=== PATIENT | female | born 1965 ===

== ENCOUNTER 2020-11-15 07:59 | Inpatient (IN) ==
--- NOTE | 2020-10-11 11:26 | PAT Medication Instructions ---
Medication Instructions Date of Service October 11, 2020 Home Medications atorvastatin 20 mg tablet 20 mg PO QAM cholecalciferol (vitamin D3) 50 mcg (2,000 unit) tablet (Vitamin D3) 50 mcg PO QAM duloxetine 30 mg capsule,delayed release 30 mg PO QAM hydrocortisone 10 mg tablet 10 mg PO UD levothyroxine 88 mcg tablet 88 mcg PO QAM lisinopril 20 mg-hydrochlorothiazide 25 mg tablet 1 tab PO QAM DO NOT take the morning of surgery cholecalciferol (vitamin D3) 50 mcg (2,000 unit) tablet (Vitamin D3) 50 mcg PO QAM lisinopril 20 mg-hydrochlorothiazide 25 mg tablet 1 tab PO QAM Take morning of surgery With a small sip of water, OTHERWISE NOTHING TO EAT OR DRINK AFTER MIDNIGHT: atorvastatin 20 mg tablet 20 mg PO QAM duloxetine 30 mg capsule,delayed release 30 mg PO QAM levothyroxine 88 mcg tablet 88 mcg PO QAM Take evening before surgery hydrocortisone 10 mg tablet 10 mg PO UD Other Notes If you have any questions please call us at [phone] or [phone] or [phone] or [phone]
--- NOTE | 2020-10-11 11:29 | Anesthesiology Consultation ---
Date of Service October 11, 2020 Assessment & Plan (1) Encounter for pre-operative examination: - COVID screening: Per assessment on 10/11: Travel screen negative, no known COVID-19 positive contacts or current COVID-19 related symptoms. Patient vaccinated. Surgeon arranging preop COVID testing. Awaiting results. - Ict Managers needed: Patient declined brim stitcher at PAT visit. Able to answer questions in Nepali appropriately with aid of friend present for some clarification. Patient requesting bottom turning lathe tender for DOS. OR made aware. Chart Review Chart Review: Acceptable Risk for Surgery and Patient seen in Pre Admission Testing Teaching & Discussion Pre-Anesthesia Teaching/Discussion Notes: Instructed NPO after midnight before surgery,except medications with 15 cc of water. Medication instructions provided according to the [facility] guidelines. History Surgery Operation Date: 10/25/20 09:45 Proposed Procedures p L4-S1 Decompression and Fusion Spinal Cord Monitoring - Antelmo Mcdermott, Height/Weight Height: 5 ft 4 in Weight: 65.3 kg Allergies Allergy/AdvReac Type Severity Reaction Status Date / Time acetaminophen [From Percocet] AdvReac Mild Nausea Verified 10/11/20 11:56 oxycodone [From Percocet] AdvReac Mild Nausea Verified 10/11/20 11:56 pollen extracts AdvReac Mild Cough Unverified 10/11/20 11:56 Kiasxld-Lzj-Jau Reductase AdvReac Unknown Elevated Unverified 10/11/20 11:16 Inhibitor LFTs (per [facility] records) Medications Home Medications Medication Instructions Recorded Confirmed Last Taken atorvastatin 20 mg tablet 20 mg PO QAM 10/11/20 10/11/20 Unknown cholecalciferol (vitamin D3) 50 50 mcg PO QAM 10/11/20 10/11/20 Unknown mcg (2,000 unit) tablet (Vitamin D3) duloxetine 30 mg capsule,delayed 30 mg PO QAM 10/11/20 10/11/20 Unknown release hydrocortisone 10 mg tablet 10 mg PO UD 10/11/20 10/11/20 Unknown levothyroxine 88 mcg tablet 88 mcg PO QAM 10/11/20 10/11/20 Unknown lisinopril 20 1 tab PO QAM 10/11/20 10/11/20 Unknown mg-hydrochlorothiazide 25 mg tablet Past Medical History Medical History Adrenal cortex insufficiency Follows with endocrine (Dr. Lopez/[place]), pt taking hydrocortisone 30mg HS Degenerative disc disease History of migraine HTN (hypertension) Hyperlipidemia Papillary thyroid carcinoma s/p surgery/radiation Peripheral neuropathy Reason for duloxetine per pt Postoperative hypothyroidism Renal cyst "simple" Restless leg syndrome Exercise / Class Metabolic Activity III < 4 Walking/Shop/Light housework (one FS (no CP, occasional SOB)) Past Family History Family History Other No family history of adverse response to anesthesia Past Surgical History Surgical History H/O total thyroidectomy History of colonoscopy History of hysterectomy Partial History of surgical procedure on eye proper using laser Right eye (r/t bleed) History of tooth extraction Past Anesthesia History No Hx of Anesthesia Complications and No Family Hx of Anesthesia Complications History of PONV No Hx of PONV Review of Systems Patient denies chest pain, shortness of breath, dyspnea on exertion, fever, chills, cough, wheezing, palpitations. Physical Exam Vital Signs VITALS BP 100/65 P 76 TEMP WNL SP02 97%RA RESP 20 PHYSICAL Full cervical extension range of motion. Full TMJ range of motion. TMD 3 finger breaths Mallampati Score 2 Dentition: intact Lungs: clear throughout to auscultation Cardiac: regular rate and rhythm, no murmurs noted Spine: normal Carotid arteries: negative bruit Extremities: no edema Lab Results Anesthesia Preop Results Results Anesthesia Widget: WBC 6.86 K/uL (4.8-10.8) 10/11/20 Hgb 14.1 g/dL (12.0-16.0) 10/11/20 Hct 42.2 % (37-47) 10/11/20 Plt 311 K/uL (130-400) 10/11/20 Na 138 mmol/L (136-145) 10/11/20 K 3.6 mmol/L (3.5-5.1) 10/11/20 Cl 104 mmol/L (98-107) 10/11/20 CO2 30 mmol/L (21-32) 10/11/20 BUN 12 mg/dl (7-18) 10/11/20 Creat 0.76 mg/dl (0.6-1.2) 10/11/20 Glucose Level 101 mg/dl (70-99) H 10/11/20 PT 10.0 Seconds (9.0-12.0) 10/11/20 PTT 24.9 Seconds (21.0-31.0) 10/11/20 INR 1.0 (0.9-1.1) 10/11/20 Urine Color Yellow 10/11/20 Urine Appearance Clear (Clear) 10/11/20 Urine pH 7.5 (4.5-7.5) 10/11/20 Urine Specific [place] 1.014 (1.000-1.030) 10/11/20 Urine Protein Negative (Negative) 10/11/20 Urine Glucose (UA) Negative (Negative) 10/11/20 Urine Ketones Negative (Negative) 10/11/20 Urine Blood 1+ (Negative) H 10/11/20 Urine Nitrite Negative (Negative) 10/11/20 Urine Bilirubin Negative (Negative) 10/11/20 Urine Urobilinogen Negative (Negative) 10/11/20 Urine Leukocyte Esterase Negative (Negative) 10/11/20 Urine WBC (Auto) 1-5 /hpf (0-5) 10/11/20 Urine RBC (Auto) 5-10 /hpf (0-4) H 10/11/20 Urine Hyaline Casts (Auto) 1-5 /lpf (0-5) 10/11/20 Urine Epithelial Cells (Auto) 5-10 /lpf (0-5) H 10/11/20 Urine Bacteria (Auto) Negative (Negative) 10/11/20 Blood Type A Positive 10/11/20 Antibody Screen NEGATIVE 10/11/20 Testing Electrocardiogram Date: 10/11/20 NSR at 70bpm. unconfirmed report. Chest X-Ray Date: 10/11/20 Findings: + NAD
[~2020-11-15 07:59] MED LIST: ACETAMINOPHEN 500 MG TAB PO SCH; CeleBREX 200 MG CAP PO SCH; GABAPENTIN 600 MG DOSE PO SCH; LR 15ML/HR IV SCH; ceFAZolin 1000MG 1,000 MG/7.5 ML SYR IV SCH
[2020-11-15] MEDS ORDERED: fentaNYL citrate 100 MCG/2 ML VIAL ONE (08:00)
[2020-11-15] MEDS ORDERED: MIDAZOLAM HCL 1 MG/ML 2ML VIAL ONE (08:00)
[2020-11-15] MEDS ORDERED: HYDROmorphone INJ 2 MG/ML SYR/VIAL ONE (08:12)
--- NOTE | 2020-11-15 08:31 | History & Physical Bridge Note ---
Date of Service November 15, 2020 History & Physical Bridge Note I have examined the patient, reviewed the History & Physical and in the interval since the performance of the History & Physical I have noted the following changes of clinical significance: no changes noted
--- NOTE | 2020-11-15 08:32 | History & Physical Report ---
Date of Service November 15, 2020 Assessment & Plan (1) Neurogenic claudication due to lumbar spinal stenosis: Plan: L4-S1 decompression fusion History of Present Illness Chief Complaint: Back and leg pain Primary Care Provider: Jemima Sepulveda MD This is a 55-year-old female who presents with chronic persistent back and leg pain after failing course of nonoperative care is here for surgical invention. Allergies Allergy/AdvReac Type Severity Reaction Status Date / Time oxycodone [From Percocet] AdvReac Mild Nausea Verified 10/11/20 11:56 pollen extracts AdvReac Mild Cough Unverified 10/11/20 11:56 Cyatnlm-Fld-Zvo Reductase AdvReac Unknown Elevated Unverified 10/11/20 11:16 Inhibitor LFTs (per [facility] records) Home Medications Medication Instructions Recorded Confirmed Type atorvastatin 20 mg tablet 20 mg PO QAM 10/11/20 10/11/20 History cholecalciferol (vitamin D3) 50 50 mcg PO QAM 10/11/20 10/11/20 History mcg (2,000 unit) tablet (Vitamin D3) duloxetine 30 mg capsule,delayed 30 mg PO QAM 10/11/20 10/11/20 History release hydrocortisone 10 mg tablet 10 mg PO UD 10/11/20 10/11/20 History levothyroxine 88 mcg tablet 88 mcg PO QAM 10/11/20 10/11/20 History lisinopril 20 1 tab PO QAM 10/11/20 10/11/20 History mg-hydrochlorothiazide 25 mg tablet Past Med/Surg History Medical History Adrenal cortex insufficiency Follows with endocrine (Dr. Lopez/[place]), pt taking hydrocortisone 30mg HS Degenerative disc disease History of migraine HTN (hypertension) Hyperlipidemia Papillary thyroid carcinoma s/p surgery/radiation Peripheral neuropathy Reason for duloxetine per pt Postoperative hypothyroidism Renal cyst "simple" Restless leg syndrome Surgical History H/O total thyroidectomy History of colonoscopy History of hysterectomy Partial History of surgical procedure on eye proper using laser Right eye (r/t bleed) History of tooth extraction Family History Other No family history of adverse response to anesthesia Social History Smoking Status: Never smoker Second Hand Exposure: No; Hx Alcohol Use: No Preferred Language: Nut Packer Required: Yes Beliefs That Will Affect Care: None Current Living Situation: Spouse Feels Safe at Home: Yes Safety Concerns: Feels Safe At This Time Assistive Devices: Glasses Physical Exam Physical Exam: Patient is alert and oriented Heart regular in rhythm Lungs clear to auscultation
[2020-11-15] MEDS ORDERED: BUPIVACAINE 0.5 % 5 MG/1 ML MPF 30ML VIAL ONE (08:54)
[2020-11-15] MEDS ORDERED: EPINEPHrine INJ 1 MG/ML AMP ONE (08:54)
[2020-11-15] MEDS ORDERED: ATROPINE SULFATE 0.1 MG/ML 10ML SYR IV PRN (09:01)
[2020-11-15] MEDS ORDERED: HYDROmorphone INJ 1 MG/ML SYRINGE IV PRN ×2 (09:01→14:45)
[2020-11-15] MEDS ORDERED: ONDANSETRON INJ 2 MG/ML 2 ML VIAL IV PRN ×2 (09:01→14:45)
[2020-11-15] MEDS ORDERED: ePHEDrine sulfate 50 MG/ML SYR ONE (11:32)
[2020-11-15] MEDS ORDERED: ONDANSETRON INJ 2 MG/ML 2 ML VIAL ONE (11:32)
[2020-11-15] MEDS ORDERED: DEXAMETHASONE SOD INJ 4 MG/ML VIAL ONE (11:32)
[2020-11-15] MEDS ORDERED: HYDROCORTISONE SOD SUCCINATE 100 MG/2 ML VIAL ONE (11:32)
[2020-11-15] MEDS ORDERED: PROPOFOL IV EMULSION 10 MG/ML 20 ML VIAL IV ONE (11:32)
[2020-11-15] MEDS ORDERED: PHENYLEPHRINE 100MCG/ML 5ML SYR ONE (11:32)
[2020-11-15] MEDS ORDERED: GLYCOPYRROLATE 0.2 MG/ML VIAL ONE (11:32)
[2020-11-15] MEDS ORDERED: ROCURONIUM BROMIDE 10 MG/ML 5 ML VIAL IV ONE (11:32)
[2020-11-15] MEDS ORDERED: LIDOCAINE 2% 2 ML VIAL/AMP(20MG/ML) INFIL ONE (11:32)
[2020-11-15] MEDS ORDERED: LARYING-O-JET KIT (LTA) ONE (11:32)
[2020-11-15] MEDS ORDERED: NEOSTIGMINE METHYLSULFATE 1 MG/ML 10ML VIAL ONE (11:32)
[2020-11-15] MEDS ORDERED: FLOSEAL HEMOSTATIC MATRIX 10ML TOP ONE (12:42)
--- NOTE | 2020-11-15 12:46 | Operative Report ---
Post Operative Report Pre & Post Diagnosis Operation Date: 11/15/20 10:45 Pre-Op Diagnosis: Spinal Stenosis, Lumbar Region with Neurogenic Claudication Post-Op Diagnosis: Spinal Stenosis, Lumbar Region with Neurogenic Claudication I identified the patient and participated in the time-out.: Yes Procedure Operation Date: 11/15/20 10:45 Actual Procedures #1 lumbar decompression with bilateral medial facetectomies and foraminotomies L3-4, L4-5 and L5-S1. #2 posterior spinal fusion L4-5 L5-S1. #3 placed posterior instrumentation L4-S1. #4 interbody fusion L4-5. #5 placement peek cage 12 x 22 mm at L4-L5. #6 placement locally harvested morselized autograft in the posterior gutters. #7 placement of I factor combined with Vitoss in the interbody space and posterior gutters. Surgeon Antelmo Mcdermott DO Vice President Global Digital Marketing Sanchez Sigala Estimated Blood Loss 150 Findings Consistent with Post-Op Diagnosis Specimens None Indications This is a 50 Female presents with above-mentioned diagnosis after failing since course of nonoperative care is here for the above-mentioned procedure. Description of Procedure Patient was met with identified informed consent obtained. Patient was then taken to the operative suite underwent a patient placed in a prone position adjustable top Rosas frame. All bony prominences well-padded eyes inspected to ensure no external pressure placed upon the. This point the lumbar spine was prepped and draped in a sterile fashion. Sharp dissection with the assistance of Bovie cautery performed down to and exposing the lamina and transverse processes of L4-5 and the sacral ala bilaterally. Then proceeded to perform a complete laminectomy of L4 partial laminectomy L5 partial laminectomy of L3 and performed bilateral medial facetectomies and foraminotomies. Pedicle screws then placed in L4 and S1 levels bilaterally with assistance of fluoroscopy and the proper sized rob placed. Bilateral transforaminal portion left complete discectomy of L4-5 was performed endplates curetted to subcortical bleeding bone and a 12 x 22 mm peek cage filled with I factor tapped in position. The rods were then locked in final position bilaterally. The transverse processes of L4- L5 and sacral ala burred to subcortical bleeding bone. I factor combined with the toss and locally harvested morselized autograft was placed in the posterior gutters. 15 round GABRIELLE drain inserted. Incision was then closed with 1 Vicryl the fascia 2-0 Vicryl subcutaneously and 4 Monocryl for final skin closure. Steri-Strip sterile dressings placed. Patient will continue PACU stable condition. Please note spinal cord monitoring visualized at the procedure no changes noted. Lastly Sanchez Sigala was present at the entire surgeon while the patient positioning complex portions of the surgery and final skin closure. I attest to the content of the Intraoperative Record and any orders documented therein. Any exceptions are noted below.
--- NOTE | 2020-11-15 13:12 | Fluoroscopy Report ---
FL lumbar spine 2-3V CLINICAL HISTORY: L4-S1 COMPARISON STUDY: None. FLUOROSCOPY TIME: 28 seconds. FLUOROSCOPIC IMAGES: 2 FINDINGS: Note is made of L4-L5 discectomy with interbody spacer placement. Posterior decompression i s noted. There are bilateral pedicle screws at the L4 and S1 levels with interconnecting rods. IMPRESSION: Fluoroscopy provided during L4-L5 discectomy and L4-S1 posterior decompression and bilat eral pedicle screw fusion. ACT 112: Negative or not required by law. Electronically signed by: Shravan Em M.D. 11/15/2020 1:10 PM
--- NOTE | 2020-11-15 14:02 | Anesthesiology Progress Note ---
Date of Service November 15, 2020 Anesthesia Post Procedure Vital Signs Vital Signs: Temp Pulse Pulse Resp BP BP Pulse Ox 11/15/20 14:00 36.7 C 91 H 12 116/66 96 11/15/20 13:45 85 12 119/70 96 11/15/20 13:35 75 12 111/70 97 11/15/20 13:25 68 12 116/65 95 11/15/20 13:15 36.5 C 96 H 16 155/87 H 97 11/15/20 09:10 36.6 C 77 18 139/79 98 Transfer of Care Handoff Completed per policy Notes Mental Status: alert / awake / arousable Patient Amnestic to Procedure: Yes Nausea / Vomiting: adequately controlled Pain: adequately controlled Airway Patency, RR, SpO2: stable & adequate BP & HR: stable & adequate Hydration State: stable & adequate Anesthetic Complications: no major complications apparent
[2020-11-15] MEDS ORDERED: DO NOT ADMINISTER FLU VACCINE PRN (14:45)
[2020-11-15] MEDS ORDERED: METOCLOPRAMIDE HCL INJ 5 MG/ML 2 ML VIAL IV PRN (14:45)
[2020-11-15] MEDS ORDERED: HYDROCODONE/ACETAMINOPHEN 7.5/325MG TAB PO PRN (14:45)
[2020-11-15] MEDS ORDERED: LORazepam 0.5 MG TAB PO PRN (14:45)
[2020-11-15] MEDS ORDERED: HYDROmorphone INJ 0.5 MG/0.5 ML SYR IV PRN (14:45)
[2020-11-15] MEDS ORDERED: ACETAMINOPHEN 500 MG TAB PO PRN (14:45)
[2020-11-15] MEDS ORDERED: DO NOT ADMINISTER PNEUMOCOCCAL VACCINE PRN (14:45)
[2020-11-15] MEDS ORDERED: SOD PHOSPHATE/SOD BIPHOSPHATE ENEMA 132 ML BTL PR PRN (14:45)
[2020-11-15] MEDS ORDERED: diphenhydrAMINE Capsule 25 MG CAP PO PRN (14:45)
[2020-11-15] MEDS ORDERED: traMADol HCL 50 MG TABLET PO PRN (14:45)
[2020-11-15] MEDS ORDERED: LORazepam 0.5 MG/1 ML VIAL IV PRN (14:45)
[2020-11-15] MEDS ORDERED: MAGNESIUM HYDROXIDE SUSP 30 ML UDC PO PRN (14:45)
[2020-11-15] MEDS ORDERED: HYDROCORTISONE 10 MG TAB PO SCH (14:45)
[2020-11-15] MEDS ORDERED: bisacodyL 10 MG SUPP PR PRN (14:45)
[2020-11-15] MEDS ORDERED: FAMOTIDINE 20 MG TAB PO PRN (14:45)
[2020-11-15] MEDS ORDERED: ONDANSETRON 4 MG OD TAB PO PRN (14:45)
[2020-11-15] MEDS ORDERED: ACETAMINOPHEN 1,000 MG/100 ML VIAL IV PRN (14:45)
[2020-11-15] MEDS ORDERED: NALOXONE HCL 0.4 MG/1 ML VIAL/CARP IV PRN (14:45)
[2020-11-15] MEDS ORDERED: hydrOXYzine HCl 25 MG TAB PO PRN (14:45)
[2020-11-15] MEDS ORDERED: PROMETHAZINE HCL 12.5 MG in SODIUM CHLORIDE 0.9% 50 ML IV PRN (14:45)
[2020-11-15] MEDS ORDERED: ALUMINUM/MAGNESIUM SUSP 30 ML UDC PO PRN (14:45)
--- NOTE | 2020-11-15 15:24 | Hospitalist Consultation ---
Date of Consultation November 15, 2020 Assessment & Plan (1) Neurogenic claudication due to lumbar spinal stenosis: Post-op Day #0 - Lumbar decompression and fusion - Pain control, ambulation and DVT prophylaxis per primary service (2) Postoperative hypothyroidism: - Continue outpatient levothyroxine (3) Peripheral neuropathy: - Continue duloxetine (4) Hyperlipidemia: - Continue atorvastatin (5) HTN (hypertension): BP currently borderline at 96/63 - likely due to anesthesia and pain meds. Will monitor and resume BP meds tomorrow with HOLDs (6) Adrenal cortex insufficiency: Reviewed endocrinology note from October - pt taking hydrocortisone 20 mg in AM and 10 mg in PM. Will continue Pt seen and reviewed with collaborating physician, Dr. Carl. Plan of care discussed and as outlined above. Vicki Dorsey PA-C Supervising Physician Co-Signing Physician Notes Patient seen and examined by me, care coordinated with Jonna Dorsey PA-C, please refer to note above for further detail. Pt is a 55 y/o female w/ hx of papillary thyroid carcinoma, adrenal cortex insufficiency, HTN, migraine, hyperlipidemia, and peripheral neuropathy who underwent lumbar decompression and fusion today by Dr. Mcdermott. Currently, pt is seen lying in bed, in NAD, she is awake but somewhat drowsy from anesthesia but able to answer questions appropriately. She denies chest pain, shortness of breath, N/V, MCKINNEY or dizziness. She is having some lower back pain but denies need for pain medications at present. Denies numbness in bilateral feet. Lungs are clear to auscultation w/o any wheezing, rhonchi, crackles. Heart sounds regular. Abdomen is soft, nontender nondistended. She is able to move lower extremities. No sensory loss. Skin is warm and dry well-perfused. Speech is fluent, no facial asymmetry. Continue to closely monitor hemodynamic status, blood pressure little bit on the lower side, will hold diuretics, reassess daily. Naye Carl MD History of Present Illness Reason for Consultation: Post-Op Med Management Requesting Physician: Dr. Mcdermott Attending Physician: Antelmo Mcdermott DO History of Present Illness This is a 55 y/o female with a PMH papillary thyroid carcinoma, adrenal cortex insufficiency, HTN, migraine, hyperlipidemia, and peripheral neuropathy who underwent lumbar decompression and fusion today by Dr. Mcdermott. Currently, pt is seen lying in bed, still somewhat drowsy from anesthesia but able to answer questions appropriately. She denies chest pain, shortness of breath, N/V, MCKINNEY or dizziness. She is having some lower back pain but denies need for pain medications at present. Denies numbness in bilateral feet. Endocrinology records reviewed - at last visit 11/04, pt was taking hydrocortisone 20 mg in AM, 10 mg in PM. Allergies Allergy/AdvReac Type Severity Reaction Status Date / Time oxycodone [From Percocet] AdvReac Mild Nausea Verified 11/15/20 09:06 pollen extracts AdvReac Mild Cough Unverified 11/15/20 09:06 Vhgylrz-Xmj-Fym Reductase AdvReac Unknown Elevated Unverified 11/15/20 09:06 Inhibitor LFTs (per [facility] records) Home Medications Medication Instructions Recorded Confirmed Type atorvastatin 20 mg tablet 20 mg PO QAM 10/11/20 11/15/20 History cholecalciferol (vitamin D3) 50 50 mcg PO QAM 10/11/20 11/15/20 History mcg (2,000 unit) tablet (Vitamin D3) duloxetine 30 mg capsule,delayed 30 mg PO QAM 10/11/20 11/15/20 History release hydrocortisone 10 mg tablet 10 mg PO UD 10/11/20 11/15/20 History levothyroxine 88 mcg tablet 88 mcg PO QAM 10/11/20 11/15/20 History lisinopril 20 1 tab PO DAILY 11/15/20 11/15/20 History mg-hydrochlorothiazide 12.5 mg tablet Patient History Medical History (Updated 11/15/20 @ 15:44 by Nasra Dorsey PA-C) Adrenal cortex insufficiency Follows with endocrine (Dr. Lopez/[place]), pt taking hydrocortisone 20 mg in AM, 10 mg in PM Degenerative disc disease History of migraine HTN (hypertension) Hyperlipidemia Papillary thyroid carcinoma s/p surgery/radiation Peripheral neuropathy Reason for duloxetine per pt Postoperative hypothyroidism Renal cyst "simple" Restless leg syndrome Surgical History (Updated 11/15/20 @ 15:36 by Nasra Dorsey PA-C) H/O total thyroidectomy left total thyroidectomy in May 2016, right total thyroidectomy in June 2016 History of colonoscopy History of hysterectomy Partial History of surgical procedure on eye proper using laser Right eye (r/t bleed) History of tooth extraction Family History (Updated 11/15/20 @ 15:37 by Nasra Dorsey PA-C) Grandmother (Maternal) Ovarian cancer Other No family history of adverse response to anesthesia Social History Smoking Status: Never smoker Second Hand Exposure: No; Hx Alcohol Use: No Preferred Language: Malay Communication Tools: Language Line Oven Heater Oven Heater Required: Yes Beliefs That Will Affect Care: None Current Living Situation: Spouse Feels Safe at Home: Yes Safety Concerns: Feels Safe At This Time Assistive Devices: Glasses and Walker Review of Systems Review of Systems: All systems reviewed & are unremarkable except as noted in HPI & below Constitutional: no fever and no fatigue Ear, Nose, Mouth, Throat: no sore throat Respiratory: no cough and no dyspnea Cardiovascular: no chest pain and no lightheadedness Gastrointestinal: no nausea and no vomiting Musculoskeletal: + back pain Neurologic: no numbness, no dizziness and no headache(s) Physical Exam Constitutional: WD/WN, vitals as above no acute distress Eyes: + anicteric sclerae Neck: trachea midline Respiratory: no respiratory distress and no labored breathing Auscultation: lungs clear to auscultation bilaterally; no rales, no rhonchi and no wheezes Cardiovascular: Rate/Rhythm: regular rate and regular rhythm Heart Sounds: no gallop, no murmur and no cardiac rub Gastrointestinal (Abdomen): Inspection/Auscultation: normal bowel sounds; abdomen not distended Percussion/Palpation: abdomen soft; abdomen nontender Skin: normal turgor; no jaundice Neurologic: moves all extremities Speech / Cognition: normal speech Psychiatric: A+Ox3, euthymic affect Results & Data Results & Data ([facility]) Vital Signs (Past 12 Hours) Vital Signs Temp Pulse Pulse Resp BP BP Pulse Ox 11/15/20 14:55 36.6 C 84 16 113/70 98 11/15/20 14:20 36.8 C 96 H 18 118/71 98 11/15/20 14:10 88 12 116/63 95 11/15/20 14:00 36.7 C 91 H 12 116/66 96 11/15/20 13:45 85 12 119/70 96 11/15/20 13:35 75 12 111/70 97 11/15/20 13:25 68 12 116/65 95 11/15/20 13:15 36.5 C 96 H 16 155/87 H 97 11/15/20 09:10 36.6 C 77 18 139/79 98 Laboratory Results Laboratory Results - last 24 hr 11/15/20 11/15/20 11/15/20 08:10 08:10 08:16 COVID-19 Eval Order Covid19 [facility] SARS-CoV-2, RNA, NAAT NEGATIVE Blood Type A Positive Antibody Screen NEGATIVE Crossmatch See Detail Medications Administered Acetaminophen (Acetaminophen 500 Mg Tab) 1,000 mg PO PREOP ALMA Stop: 11/15/20 18:00 Last Admin: 11/15/20 09:04 Dose: 1,000 mg Documented by: [id number] Celecoxib (Celebrex 200 Mg Cap) 200 mg PO PREOP ALMA Stop: 11/15/20 18:00 Last Admin: 11/15/20 09:04 Dose: 200 mg Documented by: [id number] Gabapentin (Gabapentin 600 Mg Dose) 600 mg PO PREOP ALMA Stop: 11/15/20 18:00 Last Admin: 11/15/20 09:04 Dose: 600 mg Documented by: [id number] Lactated Ringer's (Lr) 1,000 mls @ 15 mls/hr IV .Q24H ALMA Stop: 11/16/20 05:59 Last Infusion: 11/15/20 10:45 Dose: 0 mls/hr Documented by: [id number] Admin: 11/15/20 09:04 Dose: 15 mls/hr Documented by: [id number] Cefazolin Sodium (Ancef 1000mg) 1,000 mg in 7.5 mls @ 2.5 mls/min IV PREOP ALMA; Protocol Stop: 11/15/20 18:00 Last Admin: 11/15/20 10:45 Dose: 2.5 mls/min Documented by: [id number] Discontinued Medications Bupivacaine HCl (Bupivacaine 0.5 % 5 Mg/1 Ml Mpf 30ml Vial) Confirm Administered Dose 30 ml .ROUTE .STK-MED ONE Stop: 11/15/20 08:55 Last Admin: 11/15/20 11:49 Dose: 30 ml Documented by: [id number] Cefazolin Sodium (Cefazolin 250 Mg/Ml 1 Gm Vial) Confirm Administered Dose 1,000 mg .ROUTE .STK-MED ONE Stop: 11/15/20 08:55 Last Admin: 11/15/20 11:49 Dose: 1,000 mg Documented by: [id number] Epinephrine HCl (Epinephrine Inj 1 Mg/Ml Amp) Confirm Administered Dose 1 mg .ROUTE .STK-MED ONE Stop: 11/15/20 08:55 Last Admin: 11/15/20 11:48 Dose: 0.15 mg Documented by: [id number] Miscellaneous ( Floseal Hemostatic Matrix 10ml) 20 ml TOP ONCE ONE Stop: 11/15/20 12:43 Last Admin: 11/15/20 12:42 Dose: 15 ml Documented by: [id number]
[2020-11-15] MEDS: LACTATED RINGER'S 1,000 ML IV SCH ×2 (16:22→23:31)
[2020-11-15] MEDS: KETOROLAC TROMETHAMINE 15 MG/ML VIAL IV SCH ×2 (17:20→21:31)
[2020-11-15] MEDS: HYDROCORTISONE 10 MG TAB PO SCH (18:44)
[2020-11-15] MEDS: ceFAZolin 1000MG 1,000 MG/7.5 ML SYR IV SCH (20:21)
[2020-11-15] MEDS: DOCUSATE SODIUM/SENNA 50/8.6MG TAB PO SCH (20:22)
[2020-11-16] MEDS: KETOROLAC TROMETHAMINE 15 MG/ML VIAL IV SCH ×2 (04:39→09:55)
[2020-11-16] MEDS: ceFAZolin 1000MG 1,000 MG/7.5 ML SYR IV SCH (04:39)
[2020-11-16] MEDS: LEVOTHYROXINE SODIUM 88 MCG TABLET PO SCH (05:33)
[2020-11-16] MEDS: POLYETHYLENE (MIRALAX) 17 GM PACK PO SCH ×4 (05:34→23:21)
[2020-11-16 07:09] LABS: Basophils # (auto) 0.01 K/uL (0-0.2); Basophils % (auto) 0.1 %; Hematocrit (blood only) 33.9 % (37-47); Hemoglobin 11.1 g/dL (12.0-16.0); Immature Granulocytes # (auto) 0.03 K/uL (0.00-0.02); Immature Granulocytes % (auto) 0.3 %; Lymphocytes # (auto) 0.67 K/uL (1.2-3.4); Lymphocytes % (auto) 5.9 %; Mean Corpuscular Hemoglobin 31.5 pg (25-34); Mean Corpuscular Hgb Conc 32.7 g/dL (32-36); Mean Corpuscular Volume 96.3 fL (80-100); Monocytes # (auto) 0.62 K/uL (0.11-0.59); Monocytes % (auto) 5.4 %; Neutrophils # (auto) 10.07 K/uL (1.4-6.5); Neutrophils % (auto) 88.3 %; Platelet Count 260 K/uL (130-400); RDW Coefficient of Variation 12.8 % (11.5-14.5); RDW Standard Deviation 45.3 fL (36.4-46.3); Red Blood Count 3.52 M/uL (4.2-5.4)
[2020-11-16 07:25] LABS: BUN Creatinine Ratio 29.6 (10-20); Calcium 8.7 mg/dl (8.5-10.1); Creatinine Clr Calc Pharmacy 75.2 ml/min; Est GFR (African American) 107.5 ml/min; Est GFR (Non-African American) 92.7 ml/min; Potassium 4.5 mmol/L (3.5-5.1)
--- NOTE | 2020-11-16 07:36 | Orthopedic Progress Note ---
Date of Service November 16, 2020 Assessment & Plan (1) Neurogenic claudication due to lumbar spinal stenosis: Plan: Patient is doing well postop day #1. We will continue with GI DVT prophylaxis and pain control measures. She will be mobilized today with physical therapy and Occupational Therapy. She does realize she is asked for pain medication if she is uncomfortable. She is likely be discharged in the next day or 2 depending on her progress. Admission and Anticipated Discharge Date Admission Date: November 15, 2020 Subjective Patient seen bedside in room 307. She does not complain of any discomfort at this point. She denies any nausea. She is not having any leg pain. She denies any other numbness, tingling, or paresthesias. Physical Exam Physical Exam: On exam she is alert and oriented. She is able answer questions appropriately her abdomen soft and nontender. Her calves are supple nontender. Her strength and sensation are both intact. Her dressing is clean dry and intact her GABRIELLE drain is holding suction is placed out 35 cc on the last shift and 25 on the previous Results & Data ([facility]) Vital Signs (Past 12 Hours) Vital Signs Temp Pulse Resp BP Pulse Ox 11/16/20 07:23 36.8 C 62 16 109/66 98 11/16/20 03:30 36.7 C 58 L 16 109/64 99 11/15/20 23:07 36.6 C 82 14 92/53 L 98
--- NOTE | 2020-11-16 08:01 | Hospitalist Progress Note ---
Date of Service November 16, 2020 Assessment & Plan (1) Neurogenic claudication due to lumbar spinal stenosis: Plan: Post-op Day #1 - Lumbar decompression and fusion - Pain control, ambulation and DVT prophylaxis per primary (ortho) service Acute blood loss anemia, post-operative and dilutional - pre-op Hgb 14.1, current 11.1 - Expected, patient asymptomatic, no need for blood transfusion - cont to monitor H&H (2) Postoperative hypothyroidism: Plan: - Continue outpatient levothyroxine (3) Peripheral neuropathy: Plan: - Continue duloxetine (4) Hyperlipidemia: Plan: - Continue atorvastatin (5) HTN (hypertension): Plan: BP after surgery 96/63 - likely due to anesthesia and pain meds. Hold BP meds for now, reassess daily Current BP 109/66 cont. to monitor (6) Adrenal cortex insufficiency: Plan: Reviewed endocrinology note from October - pt taking hydrocortisone 20 mg in AM and 10 mg in PM. Will continue Admission and Anticipated Discharge Date Admission Date: November 15, 2020 Subjective Patient seen in follow-up of lumbar spinal surgery Currently laying in bed, in no acute distress She is awake alert oriented answering questions appropriately says she was ambulating a little bit around her bed Eating without difficulty, still has Cline catheter, no bowel movement Back pain controlled, no numbness tingling down the legs Review of Systems Review of Systems: All systems reviewed & are unremarkable except as noted in Subjective Physical Exam Physical Exam: Constitutional: WD/WN, in no acute distress HEENT: NC/AT, EOMI, PERRL Respiratory: no respiratory distress and no labored breathing Auscultation: lungs clear to auscultation bilaterally; no rales, no rhonchi and no wheezes Cardiovascular: Rate/Rhythm: regular rate and regular rhythm Heart Sounds: no gallop, no murmur Gastrointestinal (Abdomen): Inspection/Auscultation: normal bowel sounds; abdomen not distended Percussion/Palpation: abdomen soft; abdomen nontender Skin: normal turgor; no jaundice Neurologic: moves all extremities Speech / Cognition: normal speech Psychiatric: A+Ox3, euthymic affect Results & Data Results & Data ([facility]) Vital Signs (Past 12 Hours) Vital Signs Temp Pulse Resp BP Pulse Ox 11/16/20 07:23 36.8 C 62 16 109/66 98 09/04/21 03:30 36.7 C 58 L 16 109/64 99 11/15/20 23:07 36.6 C 82 14 92/53 L 98 Laboratory Results 11/16/20 11/16/20 11/15/20 Range/Units 06:33 06:33 08:16 WBC 11.40 H (4.8-10.8) K/uL RBC 3.52 L (4.2-5.4) M/uL Hgb 11.1 L (12.0-16.0) g/dL Hct 33.9 L (37-47) % MCV 96.3 (80-100) fL MCH 31.5 (25-34) pg MCHC 32.7 (32-36) g/dL RDW Std Deviation 45.3 (36.4-46.3) fL RDW Coeff of Crystal 12.8 (11.5-14.5) % Plt Count 260 (130-400) K/uL MPV 10.0 (7.4-10.4) fL Immature Gran % (Auto) 0.3 % Neut % (Auto) 88.3 % Lymph % (Auto) 5.9 % Maverick % (Auto) 5.4 % Eos % (Auto) 0.0 % Baso % (Auto) 0.1 % Neut # (Auto) 10.07 H (1.4-6.5) K/uL Lymph # (Auto) 0.67 L (1.2-3.4) K/uL Maverick # (Auto) 0.62 H (0.11-0.59) K/uL Eos # (Auto) 0.00 (0-0.5) K/uL Baso # (Auto) 0.01 (0-0.2) K/uL Immature Gran # (Auto) 0.03 H (0.00-0.02) K/uL Sodium 141 (136-145) mmol/L Potassium 4.5 (3.5-5.1) mmol/L Chloride 108 H (98-107) mmol/L Carbon Dioxide 30 (21-32) mmol/L Anion Gap 3.0 (3-11) BUN 21 H (7-18) mg/dl Creatinine 0.73 (0.6-1.2) mg/dl Est Cr Clr Drug Dosing 75.2 ml/min Est GFR ( Amer) 107.5 ml/min Est GFR (Non-Af Amer) 92.7 ml/min BUN/Creatinine Ratio 29.6 H (10-20) Glucose 106 H (70-99) mg/dl Calcium 8.7 (8.5-10.1) mg/dl COVID-19 Eval Order SARS-CoV-2, RNA, NAAT (NEGATIVE) Blood Type A Positive Antibody Screen NEGATIVE Crossmatch See Detail 11/15/20 11/15/20 Range/Units 08:10 08:10 WBC (4.8-10.8) K/uL RBC (4.2-5.4) M/uL Hgb (12.0-16.0) g/dL Hct (37-47) % MCV (80-100) fL MCH (25-34) pg MCHC (32-36) g/dL RDW Std Deviation (36.4-46.3) fL RDW Coeff of Crystal (11.5-14.5) % Plt Count (130-400) K/uL MPV (7.4-10.4) fL Immature Gran % (Auto) % Neut % (Auto) % Lymph % (Auto) % Maverick % (Auto) % Eos % (Auto) % Baso % (Auto) % Neut # (Auto) (1.4-6.5) K/uL Lymph # (Auto) (1.2-3.4) K/uL Maverick # (Auto) (0.11-0.59) K/uL Eos # (Auto) (0-0.5) K/uL Baso # (Auto) (0-0.2) K/uL Immature Gran # (Auto) (0.00-0.02) K/uL Sodium (136-145) mmol/L Potassium (3.5-5.1) mmol/L Chloride (98-107) mmol/L Carbon Dioxide (21-32) mmol/L Anion Gap (3-11) BUN (7-18) mg/dl Creatinine (0.6-1.2) mg/dl Est Cr Clr Drug Dosing ml/min Est GFR ( Amer) ml/min Est GFR (Non-Af Amer) ml/min BUN/Creatinine Ratio (10-20) Glucose (70-99) mg/dl Calcium (8.5-10.1) mg/dl COVID-19 Eval Order Covid19 IDNow [facility] SARS-CoV-2, RNA, NAAT NEGATIVE (NEGATIVE) Blood Type Antibody Screen Crossmatch Medications Administered Current Inpatient Medications Acetaminophen (Acetaminophen 500 Mg Tab) 1,000 mg PO Q8H PRN PRN Reason: MILD Pain Scale 1,2,3 & Pre PT Stop: 12/15/20 14:44 Hydrocodone Bitart/Acetaminophen (Hydrocodone/Acetaminophen 7.5/325mg Tab) 1 - 2 tab PO Q4H PRN PRN Reason: Pain & Pre PT Stop: 11/29/20 14:44 Al Hydrox/Mg Hydrox/Simethicone (Aluminum/Magnesium Susp 30 Ml Udc) 30 ml PO Q6H PRN PRN Reason: Dyspepsia Stop: 12/15/20 14:44 Atorvastatin Calcium (Atorvastatin 20 Mg Tab) 20 mg PO QAM [facility] Stop: 12/16/20 08:59 Bisacodyl (Bisacodyl 10 Mg Supp) 10 mg FL DAILY PRN PRN Reason: Constipation Stop: 12/15/20 14:44 Diphenhydramine HCl (Diphenhydramine Capsule 25 Mg Cap) 25 mg PO Q6H PRN PRN Reason: Allergic Rhinitis/Insomnia Stop: 12/15/20 14:44 Duloxetine HCl (Duloxetine Hcl 30 Mg Cap) 30 mg PO QAM [facility] Stop: 12/16/20 08:59 Famotidine (Famotidine 20 Mg Tab) 20 mg PO Q12H PRN PRN Reason: Dyspepsia Stop: 12/15/20 14:44 Hydrocortisone (Hydrocortisone 10 Mg Tab) 20 mg PO QAM [facility] Stop: 12/16/20 08:59 Hydrocortisone (Hydrocortisone 10 Mg Tab) 10 mg PO QDD [facility] Stop: 12/15/20 18:59 Last Admin: 11/15/20 18:44 Dose: 10 mg Documented by: Hydromorphone HCl (Hydromorphone Inj 0.5 Mg/0.5 Ml Syr) 0.5 mg IV Q3H PRN PRN Reason: MODERATE Pain (Scale 4,5,6) & Pre PT Stop: 11/29/20 14:44 Last Admin: 11/15/20 23:34 Dose: 0.5 mg Documented by: Hydromorphone HCl (Hydromorphone Inj 1 Mg/Ml Syringe) 1 mg IV Q3H PRN PRN Reason: SEVERE Pain (Scale 7,8,9,10) Stop: 11/29/20 14:44 Hydroxyzine HCl (Hydroxyzine Hcl 25 Mg Tab) 25 mg PO Q8H PRN PRN Reason: Anxiety Stop: 12/15/20 14:44 Lactated Ringer's (Lr) 1,000 mls @ 100 mls/hr IV .Q10H [facility] Stop: 12/15/20 14:44 Last Admin: 11/15/20 23:31 Dose: 100 mls/hr Documented by: Promethazine HCl 12.5 mg/ (Sodium Chloride) 50.5 mls @ 202 mls/hr IV Q6H PRN PRN Reason: Nausea &/or Vomiting Stop: 12/15/20 14:44 Acetaminophen (Ofirmev) 1,000 mg in 100 mls @ 400 mls/hr IV Q8H PRN PRN Reason: Pain Rating 1-3 & Pre PT Stop: 11/18/20 14:44 Lorazepam (Ativan) 0.5 mg in 1 mls @ 1 mls/min IV Q8H PRN PRN Reason: Sedation/Anxiety Stop: 12/15/20 14:44 Influenza Virus Vaccine Quadrival (Do Not Administer Flu Vaccine) 1 ea N/A PRN PRN PRN Reason: Notification Stop: 12/15/20 14:44 Ketorolac Tromethamine (Ketorolac Tromethamine 15 Mg/Ml Vial) 15 mg IV Q6H [facility] Stop: 11/16/20 10:01 Last Admin: 11/16/20 04:39 Dose: 15 mg Documented by: Levothyroxine Sodium (Levothyroxine Sodium 88 Mcg Tablet) 88 mcg PO DAILYBB [facility] Stop: 12/16/20 06:29 Last Admin: 11/16/20 05:33 Dose: 88 mcg Documented by: Lorazepam (Lorazepam 0.5 Mg Tab) 0.5 mg PO Q8H PRN PRN Reason: Sedation/Anxiety Stop: 12/15/20 14:44 Magnesium Hydroxide (Magnesium Hydroxide Susp 30 Ml Udc) 30 ml PO Q24H PRN PRN Reason: Constipation Stop: 12/15/20 14:44 Metoclopramide HCl (Metoclopramide Hcl Inj 5 Mg/Ml 2 Ml Vial) 10 mg IV Q6H PRN PRN Reason: Nausea &/or Vomiting Stop: 12/15/20 14:44 Naloxone HCl (Naloxone Hcl 0.4 Mg/1 Ml Vial/Carp) 0.1 mg IV Q5M PRN PRN Reason: Oversedation/Resp depression Stop: 12/15/20 14:44 Ondansetron HCl (Ondansetron Inj 2 Mg/Ml 2 Ml Vial) 4 mg IV Q6H PRN PRN Reason: Nausea &/or Vomiting Stop: 12/15/20 14:44 Ondansetron HCl (Ondansetron 4 Mg Od Tab) 4 mg PO Q6H PRN PRN Reason: Nausea Stop: 12/15/20 14:44 Pneumococcal Polyvalent Vaccine (Do Not Administer Pneumococcal Vaccine) 1 ea N/A PRN PRN PRN Reason: Notification Stop: 12/15/20 14:44 Polyethylene Glycol (Polyethylene (Miralax) 17 Gm Pack) 17 gm PO Q6 [facility] Stop: 12/16/20 05:59 Last Admin: 11/16/20 05:34 Dose: Not Given Documented by: Senna/Docusate Sodium (Docusate Sodium/Senna 50/8.6mg Tab) 2 tab PO HS [facility] Stop: 12/15/20 20:59 Last Admin: 11/15/20 20:22 Dose: 2 tab Documented by: Sodium Biphosphate/Sodium Phosphate (Sod Phosphate/Sod Biphosphate Enema 132 Ml Btl) 132 ml FL ONE PRN PRN Reason: Constipation Stop: 12/15/20 14:44 Tramadol HCl (Tramadol Hcl 50 Mg Tablet) 50 - 100 mg PO Q4H PRN PRN Reason: Moderate-Severe pain & Pre PT Stop: 12/15/20 14:44 Vitamin D (Cholecalciferol 1,000 Units 25 Mcg Tab) 2,000 units PO QAM [facility] Stop: 12/16/20 08:59
[2020-11-16] MEDS: HYDROCORTISONE 10 MG TAB PO SCH ×2 (08:09→16:59)
[2020-11-16] MEDS: CHOLECALCIFEROL 1,000 UNITS 25 MCG TAB PO SCH (08:09)
[2020-11-16] MEDS: ATORVASTATIN 20 MG TAB PO SCH (08:10)
[2020-11-16] MEDS: DULoxetine HCL 30 MG CAP PO SCH (08:10)
[2020-11-16] MEDS ORDERED: LISINOPRIL/HCTZ 20/25MG 1 TAB PO SCH (09:00)
[2020-11-16] MEDS ORDERED: lisinopril 20 MG TAB PO SCH (09:00)
[2020-11-16] MEDS: LACTATED RINGER'S 1,000 ML IV SCH ×2 (09:55→18:07)
[2020-11-16] MEDS: DOCUSATE SODIUM/SENNA 50/8.6MG TAB PO SCH (20:43)
[2020-11-17] MEDS: LACTATED RINGER'S 1,000 ML IV SCH (03:43)
[2020-11-17 05:26] LABS: Hematocrit (blood only) 32.4 % (37-47); Hemoglobin 10.5 g/dL (12.0-16.0); Mean Corpuscular Hemoglobin 31.5 pg (25-34); Mean Corpuscular Hgb Conc 32.4 g/dL (32-36); Mean Corpuscular Volume 97.3 fL (80-100); Mean Platelet Volume 10.1 fL (7.4-10.4); Platelet Count 217 K/uL (130-400); RDW Coefficient of Variation 12.9 % (11.5-14.5); RDW Standard Deviation 45.9 fL (36.4-46.3); Red Blood Count 3.33 M/uL (4.2-5.4); White Blood Count 7.72 K/uL (4.8-10.8)
[2020-11-17 05:49] LABS: BUN Creatinine Ratio 26.9 (10-20); Calcium 8.4 mg/dl (8.5-10.1); Creatinine Clr Calc Pharmacy 85.8 ml/min; Est GFR (African American) 116.4 ml/min; Est GFR (Non-African American) 100.5 ml/min; Potassium 4.3 mmol/L (3.5-5.1)
[2020-11-17] MEDS: LEVOTHYROXINE SODIUM 88 MCG TABLET PO SCH (05:57)
[2020-11-17] MEDS: POLYETHYLENE (MIRALAX) 17 GM PACK PO SCH (05:57)
--- NOTE | 2020-11-17 07:32 | Hospitalist Progress Note ---
Date of Service November 17, 2020 Assessment & Plan (1) Neurogenic claudication due to lumbar spinal stenosis: Plan: Post-op Day #2 - Lumbar decompression and fusion - Pain control, ambulation and DVT prophylaxis per primary (ortho) service Acute blood loss anemia, post-operative and dilutional - pre-op Hgb 14.1, current 10.5 (yesterday 11.1) - Expected, patient asymptomatic, no need for blood transfusion - cont to monitor H&H (2) Postoperative hypothyroidism: Plan: - Continue outpatient levothyroxine (3) Peripheral neuropathy: Plan: - Continue duloxetine (4) Hyperlipidemia: Plan: - Continue atorvastatin (5) HTN (hypertension): Plan: BP after surgery 96/63 - likely due to anesthesia and pain meds. Held BP meds while inpt. Current BP improved, may resume home BP meds on DC cont. to monitor (6) Adrenal cortex insufficiency: Plan: Reviewed endocrinology note from October - pt taking hydrocortisone 20 mg in AM and 10 mg in PM. Will continue Admission and Anticipated Discharge Date Admission Date: November 15, 2020 Subjective Patient seen in follow-up of lumbar spinal surgery Currently sitting up in bed, in no acute distress, eating breakfast She is awake alert oriented answering questions appropriately Reports no difficulty voiding, also reports having BM this morning Back pain controlled, no numbness tingling down the legs Review of Systems Review of Systems: All systems reviewed & are unremarkable except as noted in Subjective Physical Exam Physical Exam: Constitutional: WD/WN, in no acute distress HEENT: NC/AT, EOMI, PERRL Respiratory: no respiratory distress and no labored breathing Auscultation: lungs clear to auscultation bilaterally; no rales, no rhonchi and no wheezes Cardiovascular: Rate/Rhythm: regular rate and regular rhythm Heart Sounds: no gallop, no murmur Gastrointestinal (Abdomen): Inspection/Auscultation: normal bowel sounds; abdomen not distended Percussion/Palpation: abdomen soft; abdomen nontender Skin: normal turgor; no jaundice Neurologic: moves all extremities Speech / Cognition: normal speech Psychiatric: A+Ox3, euthymic affect Results & Data Results & Data ([facility]) Vital Signs (Past 12 Hours) Vital Signs Temp Pulse Resp BP Pulse Ox 11/16/20 22:33 36.7 C 74 15 128/70 96 Laboratory Results 11/17/20 11/17/20 Range/Units 04:57 04:57 WBC 7.72 (4.8-10.8) K/uL RBC 3.33 L (4.2-5.4) M/uL Hgb 10.5 L (12.0-16.0) g/dL Hct 32.4 L (37-47) % MCV 97.3 (80-100) fL MCH 31.5 (25-34) pg MCHC 32.4 (32-36) g/dL RDW Std Deviation 45.9 (36.4-46.3) fL RDW Coeff of Crystal 12.9 (11.5-14.5) % Plt Count 217 (130-400) K/uL MPV 10.1 (7.4-10.4) fL Sodium 142 (136-145) mmol/L Potassium 4.3 (3.5-5.1) mmol/L Chloride 110 H (98-107) mmol/L Carbon Dioxide 33 H (21-32) mmol/L Anion Gap -1.0 L (3-11) BUN 17 (7-18) mg/dl Creatinine 0.64 (0.6-1.2) mg/dl Est Cr Clr Drug Dosing 85.8 ml/min Est GFR ( Amer) 116.4 ml/min Est GFR (Non-Af Amer) 100.5 ml/min BUN/Creatinine Ratio 26.9 H (10-20) Glucose 93 (70-99) mg/dl Calcium 8.4 L (8.5-10.1) mg/dl Medications Administered Current Inpatient Medications Acetaminophen (Acetaminophen 500 Mg Tab) 1,000 mg PO Q8H PRN PRN Reason: MILD Pain Scale 1,2,3 & Pre PT Stop: 12/15/20 14:44 Hydrocodone Bitart/Acetaminophen (Hydrocodone/Acetaminophen 7.5/325mg Tab) 1 - 2 tab PO Q4H PRN PRN Reason: Pain & Pre PT Stop: 11/29/20 14:44 Al Hydrox/Mg Hydrox/Simethicone (Aluminum/Magnesium Susp 30 Ml Udc) 30 ml PO Q6H PRN PRN Reason: Dyspepsia Stop: 12/15/20 14:44 Atorvastatin Calcium (Atorvastatin 20 Mg Tab) 20 mg PO QAM [facility] Stop: 12/16/20 08:59 Last Admin: 11/16/20 08:10 Dose: 20 mg Documented by: Bisacodyl (Bisacodyl 10 Mg Supp) 10 mg [place] DAILY PRN PRN Reason: Constipation Stop: 12/15/20 14:44 Diphenhydramine HCl (Diphenhydramine Capsule 25 Mg Cap) 25 mg PO Q6H PRN PRN Reason: Allergic Rhinitis/Insomnia Stop: 12/15/20 14:44 Duloxetine HCl (Dul[facility]etine Hcl 30 Mg Cap) [facility] [place] Stop: 12/16/20 08:59 Last Admin: 11/16/20 08:10 Dose: 30 mg Documented by: Famotidine (Famotidine 20 Mg Tab) 20 mg PO Q12H PRN PRN Reason: Dyspepsia Stop: 12/15/20 14:44 Hydrocortisone (Hydrocortisone 10 Mg Tab) [facility] [place] Stop: 12/16/20 08:59 Last Admin: 11/16/20 08:09 Dose: 20 mg Documented by: Hydrocortisone (Hydrocortisone 10 Mg Tab) 10 mg PO QDD [facility] Stop: 12/15/20 18:59 Last Admin: 11/16/20 16:59 Dose: 10 mg Documented by: Hydromorphone HCl (Hydromorphone Inj 0.5 Mg/0.5 Ml Syr) 0.5 mg IV Q3H PRN PRN Reason: MODERATE Pain (Scale 4,5,6) & Pre PT Stop: 11/29/20 14:44 Last Admin: 11/15/20 23:34 Dose: 0.5 mg Documented by: Hydromorphone HCl (Hydromorphone Inj 1 Mg/Ml Syringe) 1 mg IV Q3H PRN PRN Reason: SEVERE Pain (Scale 7,8,9,10) Stop: 11/29/20 14:44 Hydroxyzine HCl (Hydroxyzine Hcl 25 Mg Tab) 25 mg PO Q8H PRN PRN Reason: Anxiety Stop: 12/15/20 14:44 Lactated Ringer's (Lr) 1,000 mls @ 100 mls/hr IV .Q10H [facility] Stop: 12/15/20 14:44 Last Admin: 11/17/20 03:43 Dose: 100 mls/hr Documented by: Promethazine HCl 12.5 mg/ (Sodium Chloride) 50.5 mls @ 202 mls/hr IV Q6H PRN PRN Reason: Nausea &/or Vomiting Stop: 12/15/20 14:44 Acetaminophen (Ofirmev) 1,000 mg in 100 mls @ 400 mls/hr IV Q8H PRN PRN Reason: Pain Rating 1-3 & Pre PT Stop: 11/18/20 14:44 Lorazepam (Ativan) 0.5 mg in 1 mls @ 1 mls/min IV Q8H PRN PRN Reason: Sedation/Anxiety Stop: 12/15/20 14:44 Influenza Virus Vaccine Quadrival (Do Not Administer Flu Vaccine) 1 ea N/A PRN PRN PRN Reason: Notification Stop: 12/15/20 14:44 Levothyroxine Sodium (Levothyroxine Sodium 88 Mcg Tablet) 88 mcg PO DAILYBB [facility] Stop: 12/16/20 06:29 Last Admin: 11/17/20 05:57 Dose: 88 mcg Documented by: Lorazepam (Lorazepam 0.5 Mg Tab) 0.5 mg PO Q8H PRN PRN Reason: Sedation/Anxiety Stop: 12/15/20 14:44 Magnesium Hydroxide (Magnesium Hydroxide Susp 30 Ml Udc) 30 ml PO Q24H PRN PRN Reason: Constipation Stop: 12/15/20 14:44 Metoclopramide HCl (Metoclopramide Hcl Inj 5 Mg/Ml 2 Ml Vial) 10 mg IV Q6H PRN PRN Reason: Nausea &/or Vomiting Stop: 12/15/20 14:44 Naloxone HCl (Naloxone Hcl 0.4 Mg/1 Ml Vial/Carp) 0.1 mg IV Q5M PRN PRN Reason: Oversedation/Resp depression Stop: 12/15/20 14:44 Ondansetron HCl (Ondansetron Inj 2 Mg/Ml 2 Ml Vial) 4 mg IV Q6H PRN PRN Reason: Nausea &/or Vomiting Stop: 12/15/20 14:44 Ondansetron HCl (Ondansetron 4 Mg Od Tab) 4 mg PO Q6H PRN PRN Reason: Nausea Stop: 12/15/20 14:44 Pneumococcal Polyvalent Vaccine (Do Not Administer Pneumococcal Vaccine) 1 ea N/A PRN PRN PRN Reason: Notification Stop: 12/15/20 14:44 Polyethylene Glycol (Polyethylene (Miralax) 17 Gm Pack) 17 gm PO Q6 [facility] Stop: 12/16/20 05:59 Last Admin: 11/17/20 05:57 Dose: 17 gm Documented by: Senna/Docusate Sodium (Docusate Sodium/Senna 50/8.6mg Tab) 2 tab PO HS [facility] Stop: 12/15/20 20:59 Last Admin: 11/16/20 20:43 Dose: 2 tab Documented by: Sodium Biphosphate/Sodium Phosphate (Sod Phosphate/Sod Biphosphate Enema 132 Ml Btl) 132 ml [place] ONE PRN PRN Reason: Constipation Stop: 12/15/20 14:44 Tramadol HCl (Tramadol Hcl 50 Mg Tablet) 50 - 100 mg PO Q4H PRN PRN Reason: Moderate-Severe pain & Pre PT Stop: 12/15/20 14:44 Last Admin: 11/16/20 19:59 Dose: 50 mg Documented by: Vitamin D (Cholecalciferol 1,000 Units 25 Mcg Tab) 2,000 units PO QAM [facility] Stop: 12/16/20 08:59 Last Admin: 11/16/20 08:09 Dose: 2,000 units Documented by:
--- NOTE | 2020-11-17 07:53 | Discharge Summary ---
Date of Service November 17, 2020 Admission HPI Per Admitting Provider This is a 55-year-old female who presents with chronic persistent back and leg pain after failing course of nonoperative care is here for surgical invention. Discharge Data Consultations 11/15/20 14:45 Consult Hospitalist Routine Procedures Performed Operation Date: 11/15/20 10:45 Actual Procedures p L4-S1 Decompression and Fusion, Spinal Cord Monitoring(Not Applicable) - Antelmo Mcdermott DO Hospital Course (1) Neurogenic claudication due to lumbar spinal stenosis: Discharge Instructions Patient is a pleasant 55-year-old female with history physical examination radiographic images consistent with the above-mentioned diagnosis. This reason she was brought to the operating room on 11/15/2020. She did undergone a lumbar decompression and fusion from L4 to the sacrum. This performed by Dr. Mcdermott under general anesthesia. She left the operating room GABRIELLE drain Cline in place was transferred to PACU in stable condition. She is then transferred to the orthopedic floor. She was seen by physical therapy postop day 1. She did have an episode of hypotension and she was given increased fluids and her blood pressure medications were held. On this morning she is resting well and her pain is controlled. She would like to be discharged home and meets criteria. She should not lift anything heavier than 5 to 7 pounds. Her dressing will be changed before she leaves and the dressings were changed once daily until there is no drainage once there is no drainage she may shower. She is to be seen in the office for 2-week follow-up or sooner if she develops any increased pain, drainage, fevers, or chills.
[2020-11-17] MEDS: HYDROCORTISONE 10 MG TAB PO SCH (08:43)
[2020-11-17] MEDS: ATORVASTATIN 20 MG TAB PO SCH (08:43)
[2020-11-17] MEDS: DULoxetine HCL 30 MG CAP PO SCH (08:43)
[2020-11-17] MEDS: CHOLECALCIFEROL 1,000 UNITS 25 MCG TAB PO SCH (08:43)
== END 2020-11-17 10:43 | disposition home or self-care (01) | DRG 454 ==
LOC: ASU 07:59 → 3E 12:49